=== PATIENT | female | born 1980 | race Caucasian/White ===

== ENCOUNTER → 2020-06-15 | Outpatient (CLI) | payer BC ==
[~2020-06-15] MED LIST: FEXO30TA PO; FEXO60TA PO; HYDR-3583 PO; LISI20TA PO; MULT1CAP27 PO; NAPR-248 PO
--- NOTE | 2020-06-15 16:38 | Diagnostic Imaging Report ---
PROCEDURE: US Non-ob pelvis comp/trans. INDICATION: Anemia with heavy menstrual cycles TECHNIQUE: Multiple real time iglesias scale sonographic images were obtained of the pelvis transabdominally and endovaginally. CORRELATION STUDY: 03/27/2016 FINDINGS: UTERUS: 12.0 x 7.7 x 7.6 cm. There are multiple heterogeneous, solid masslike areas compatible with fibroids, the largest at 3.5 x 3.0 x 3.5 cm, an additional one at 2.7 x 1.9 x 2.0 cm. One located posteriorly measures up to 1.8 cm. Previously, the largest measured up to 1.2 cm in size. This overall appears more prominent from prior. ENDOMETRIUM: 14 mm. Endometrium is at the upper limits of normal for a premenopausal patient. RIGHT OVARY: Not visualized LEFT OVARY: Not visualized No significant free pelvic fluid. IMPRESSION: 1. Enlarged, probable fibroid uterus. The multiple fibroids overall appear more prominent from prior. 2. Nonvisualization of either ovary. This could be owing to their position or perhaps obscuration by the uterus and/or bowel gas. Dictated by: Dictated on workstation # [id number]
--- NOTE | 2020-06-15 19:52 | Diagnostic Imaging Report ---
INDICATION: Routine screening. COMPARISON: No prior mammograms are available for comparison. This is a baseline study. 2-D and 3-D bilateral screening mammography was performed with CAD. Scattered fibroglandular densities are identified bilaterally. No mass or malignant appearing microcalcifications are seen. Axillae are unremarkable. IMPRESSION: BI-RADS Category 1 No mammographic features suspicious for malignancy are identified. ACR BI-RADS Category 1: Negative. Result letter will be mailed to the patient. Note: At least 10% of breast cancer is not imaged by mammography. Dictated by: Dictated on workstation # [id number]
== END ==
LOC: RAD 14:36
PROVIDERS: ATTEND Obstetrics & Gynecology
DX: Z12.31 Encounter for screening mammogram for malignant neoplasm of breast (principal); D64.9 Anemia, unspecified
CPT/HCPCS: 76830; 76856; 77063; 77067

== ENCOUNTER → 2022-08-14 | Outpatient (CLI) | payer BC ==
--- NOTE | 2022-08-14 11:08 | Diagnostic Imaging Report ---
INDICATION: Routine screening. COMPARISON: 06/15/2020. TECHNIQUE: 2D and 3D bilateral screening mammography was performed with CAD. FINDINGS: Scattered fibroglandular densities are identified bilaterally. There is a nodular density in the far posterior right breast projected just above the nipple line on the MLO view. This may be just lateral to the nipple line on the CC view. Additional views of this area are recommended. The left breast is unremarkable. No malignant-appearing microcalcifications are seen. The axillae are unremarkable. IMPRESSION: Right breast density. Additional views are recommended for further evaluation. ACR BI-RADS Category 0: Incomplete. (Needs additional imaging evaluation). Result letter will be mailed to the patient. Note: At least 10% of breast cancer is not imaged by mammography. Dictated by: Dictated on workstation # [id number]
--- NOTE | 2022-08-14 11:09 | Diagnostic Imaging Report ---
PROCEDURE: Pelvic comp/transvaginal sonogram. TECHNIQUE: Complete transabdominal and transvaginal pelvic ultrasound was performed. In addition, limited pelvic Doppler was performed. INDICATION: Menorrhagia. FINDINGS: The uterus is enlarged and anteverted measuring 15.6 x 7.0 x 9.0 cm. The endometrium is thickened at 17 mm. There are multiple fibroids present with the largest measuring 4.1 x 3.6 x 4.6 cm. A second fibroid measures 3.4 x 3.5 x 2.8 cm. Cervical nabothian cysts are noted with the largest being complex measuring 17 mm x 13 mm. The ovaries are not visualized. No adnexal mass or free fluid is detected. IMPRESSION: 1. Enlarged fibroid uterus. 2. Thickened endometrium at 17 mm. 3. Nonvisualized ovaries. Dictated by: Dictated on workstation # [id number]
== END ==
LOC: RAD 09:20
PROVIDERS: ATTEND Nurse Practitioner Women's Health
DX: Z12.31 Encounter for screening mammogram for malignant neoplasm of breast (principal); N64.89 Other specified disorders of breast; D25.9 Leiomyoma of uterus, unspecified; R93.89 Abnormal findings on diagnostic imaging of other specified body structures
CPT/HCPCS: 76830; 76856; 77063; 77067

== ENCOUNTER 2022-08-21 05:59 | Outpatient (CLI) | payer BC ==
[~2022-08-21] VITALS: Ht 172.7 cm; Wt 118.8 kg
[2022-08-21] MEDS ORDERED: FERR324T4 PO (08:53)
[2022-08-21] MEDS ORDERED: ATEN100T PO (08:53)
[2022-08-21] MEDS ORDERED: AMLO-251 PO (08:53)
[2022-08-21] MEDS ORDERED: OLME20TA24 PO (08:53)
== END 2022-08-21 08:57 | disposition home or self-care (01) ==
LOC: PREOP 05:59
PROVIDERS: ATTEND Obstetrics & Gynecology
DX: Z01.818 Encounter for other preprocedural examination (principal)

== ENCOUNTER 2022-08-22 08:26 | Day surgery (SDC) | payer BC ==
[2022-08-22] VITALS (11 sets, daily range): BP systolic 114–150; BP diastolic 72–97
[~2022-08-22] VITALS: Ht 172.2 cm; Wt 118.8 kg
[~2022-08-22 08:26] MED LIST changes: +AMLO-251 PO; +ATEN100T PO; +FERR324T4 PO; +OLME20TA24 PO
[2022-08-22] MEDS ORDERED: BUPIVACAINE 0.25% 30 ML (SENSORCAINE) VIAL ONE (08:39)
[2022-08-22] MEDS ORDERED: BUPIVACAINE 0.25% 30 ML (SENSORCAINE) VIAL INJ ONE (08:42)
[2022-08-22] MEDS ORDERED: LACTATED RINGERS 1,000 ML IV PRN (08:45)
[2022-08-22] MEDS ORDERED: ONDANSETRON 4 MG/2 ML (SDV) Z0FRAN ONE (09:21)
[2022-08-22] MEDS ORDERED: LIDOCAINE PF 2% 5 ML (XYLOCAINE) VIAL ONE (09:21)
[2022-08-22] MEDS ORDERED: proPOfol 200 MG/20 ML (DIPRIVAN) VIAL IV ONE (09:21)
[2022-08-22] MEDS ORDERED: MIDAZOLAM 2 MG/2 ML (VERSED) VIAL ONE (09:21)
[2022-08-22] MEDS ORDERED: fentaNYL INJ 100 MCG/2 ML AMP ONE (09:21)
[2022-08-22 09:25] LABS: EOSINOPHILS # (AUTO) 0.1 10^3/uL (0.0-0.3); EOSINOPHILS % (AUTO) 1 % (0-10); HEMOGLOBIN 10.3 g/dL (11.5-16.0); MONOCYTES % (AUTO) 7 % (0-12)
[2022-08-22 09:27] LABS: BASOPHILS % (AUTO) 1 % (0-10); HEMATOCRIT 34 % (35-52); LYMPHOCYTES # (AUTO) 1.6 10^3/uL (1.0-4.0); LYMPHOCYTES % (AUTO) 20 % (12-44); MEAN CORPUSCULAR HEMOGLOBIN 21 pg (25-34); MEAN CORPUSCULAR HGB CONC 30 g/dL (32-36); MEAN CORPUSCULAR VOLUME 70 fL (80-99); MONOCYTES # (AUTO) 0.6 10^3/uL (0.0-1.0); NEUTROPHILS # (AUTO) 5.5 10^3/uL (1.8-7.8); NEUTROPHILS % (AUTO) 71 % (42-75); PLATELET COUNT 242 10^3/uL (130-400); WHITE BLOOD COUNT 7.8 10^3/uL (4.3-11.0)
--- NOTE | 2022-08-22 09:59 | Discharge Inst-Women's Service ---
Discharge Inst-Women's Serv Depart Medication/Instructions New, Converted or Re-Newed RX: Other (Take home OTC meds, NSAIDs/Tylenol) Problems Reviewed?: Yes Consults/Follow Up Additional Follow Up: Yes Orders/Referrals Dr. Brown/ Rose in 2 weeks Activity Activity: Activity as Tolerated NO SMOKING: NO SMOKING Nothing Inside Vagina: No Douching, No [place], No Tampons Diet Discharge Diet: No Restrictions Symptoms to Report to : Bleeding Excessive, Pain Increased, Fever Over 101 Degrees F, Vaginal Bleeding Increase, Questions/Concerns For Any Problems or Questions: Contact Your Physician, Go to [facility] Skin/Wound Care Infection Signs and Symptoms: Increased Redness, Foul Odor of Wound, Increased Drainage, Skin Itchy or Has a Rash, Increased Swelling, Temperature Above 101 F Operative Area Clean and Dry: Keep Incision Clean/Dry Stitches/[place]/Dermabond: Dermabond, Care of Stitches Bathing Instructions: NIRMAL Rivera DO Aug 22, 2022 09:59
[2022-08-22] MEDS ORDERED: D5 LR IV SOLUTION 1,000 ML IV SCH (10:00)
[2022-08-22] MEDS ORDERED: HYDROcodone/APAP 5 MG/325 MG (LORTAB) TAB PO PRN (10:00)
[2022-08-22] MEDS ORDERED: ONDANSETRON 4 MG/2 ML (SDV) Z0FRAN IVP PRN ×2 (10:00→10:45)
[2022-08-22] MEDS ORDERED: KETOROLAC 30 MG/ML VIAL IVP ONE (10:00)
[2022-08-22] MEDS ORDERED: SEVOFLURANE (ULTANE) 15 ML INHAL SOLN ONE (10:21)
[2022-08-22] MEDS ORDERED: morphine INJ 10 MG/ML 1ML (SYR OR VIAL) IVP ONE (10:45)
--- NOTE | 2022-08-22 14:22 | Anesthesia-General Post-Op ---
General Patient Condition Mental Status/LOC: Same as Preop Cardiovascular: Satisfactory Nausea/Vomiting: Absent Respiratory: Satisfactory Pain: Controlled Complications: Absent Post Op Complications Complications None Follow Up Care/Instructions Patient Instructions None needed. Anesthesia/Patient Condition Patient Condition Patient was seen earlier just prior to her discharge to home from [facility] [place] and she was doing well, no complaints, stable vital signs, no apparent adverse anesthesia problems. No complications reported per nursing. ANAYA YOU DO Aug 22, 2022 14:22
--- NOTE | 2022-08-22 14:48 | OPERATIVE REPORT ---
DATE OF SERVICE: 08/22/2022 PREOPERATIVE DIAGNOSES: 1. A 42-year-old female with endocervical polyp on speculum examination. 2. Abnormal uterine bleeding. 3. Dysmenorrhea. 4. BMI greater than 40. POSTOPERATIVE DIAGNOSES: 1. A 42-year-old female with endocervical polyp on speculum examination. 2. Abnormal uterine bleeding. 3. Dysmenorrhea. 4. BMI greater than 40. PROCEDURE: D and C. SURGEON: Nirmal Vallejo DO ANESTHESIA: LMA general. ESTIMATED BLOOD LOSS: Minimal. URINE OUTPUT: 50 mL drained at the start of the procedure. FLUIDS: 800 mL lactated Ringer's solution. FINDINGS: A cystic structure at the cervix consistent with a possible nabothian cyst. Moderate amount of endometrial curettings. SPECIMENS SENT: Endometrial curettings and cervical cyst. INDICATIONS FOR PROCEDURE: This 42-year-old female is a patient who had consultation from [facility] for abnormal uterine bleeding. Upon ultrasound and inspection, she had all the findings as defined in my findings above. Discussed with the patient the sampling of the tissue due to her age and body habitus. Risk of D and C was discussed with the patient in detail and after all questions were answered, consent was obtained and the patient was taken to the operating room. OPERATIVE REPORT IN DETAIL: Once in the operating room and anesthesia was found to be adequate, she was placed in dorsal lithotomy position, prepped and draped in sterile fashion. A timeout was performed. A weighted speculum was inserted in the patient's vagina. Right angle retractor was used to visualize the cervix, which was grasped at 12 o'clock position using a single tooth tenaculum. I then performed a paracervical block at 3 and 9 o'clock position on the cervix. Care was taken to aspirate for injecting 5 mL of 0.25% Marcaine injected at each site. I then gently sound the uterine cavity and depth was found to be 10 cm. There is a cystic structure at the external cervical os, which was grasped with a ring forceps, which causes rupture of the cyst. Clear fluid was noted coming out the cyst. I then twisted the cyst off using the ring forceps and sent this as a cervical cyst biopsy. I then performed a gentle curettage of the endometrium as the cervix was already dilated from the cyst, had a curette passes without difficulty. Copious amount of tissue was collected on several different passes. After all of this was collected and sent as endometrial curettings after which there was no active bleeding noted from the cervix. The tenaculum was removed. There was no active bleeding from the tenaculum site. All other instruments were removed from the patient's vagina. The patient tolerated the procedure well and sent to recovery area in stable condition. Lap and sponge count was correct at the end of the procedure. Instrument counts correct as well. Job ID: [id number] DocumentID: [id number] Dictated Date: 08/22/2022 10:33:29 Developmental Education Instructor Date: 08/22/2022 14:46:00 Dictated By: NIRMAL VALLEJO DO
== END 2022-08-22 12:20 | disposition home or self-care (01) ==
LOC: SDC 08:26
PROVIDERS: ATTEND Obstetrics & Gynecology
DX: N84.1 Polyp of cervix uteri (principal); N84.0 Polyp of corpus uteri; E66.01 Morbid (severe) obesity due to excess calories; Z68.41 Body mass index [BMI] 40.0-44.9, adult
CPT/HCPCS: 36415; 84703; 85025; 86850; 86900; 86901; 87081; 94664

== ENCOUNTER → 2022-08-24 | Outpatient (CLI) | payer BC ==
--- NOTE | 2022-08-24 10:01 | Diagnostic Imaging Report ---
INDICATION: Abnormal mammogram. EXAMINATION: Ultrasound of the right breast. FINDINGS: The screening mammogram performed on 08/14/2022 noted a nodular density in the far posterior aspect of the right breast. The diagnostic mammogram performed prior to this study failed to show any sign of malignancy in this region. On this exam, there is no discrete solid or cystic mass in this portion of the breast. I suspect the area in question may have been secondary to superimposition of the fibroglandular tissue alone. Even so, I would recommend that a short-term (6 month) follow-up mammogram of the right breast be obtained for continued evaluation. IMPRESSION: There is no evidence of malignancy. Recommendations as above. ACR BI-RADS Category 3: Probably benign findings. Result letter will be mailed to the patient. Note: At least 10% of breast cancer is not imaged by mammography. Dictated by: Dictated on workstation # [id number]
--- NOTE | 2022-08-25 09:39 | Diagnostic Imaging Report ---
3-D unilateral diagnostic mammogram with computer-assisted detection. INDICATION: Abnormal screening mammogram FINDINGS: The recent screening mammogram performed on 08/14/2022 noted a nodular density in the far posterior aspect of the right breast just above the nipple line. The compression views of this area showed that this finding is not as conspicuous. This finding is also difficult to visualize on the roll views and on the true lateral view. This nodular asymmetry may be secondary to fibronodular tissue alone. Even so, I would recommend that ultrasound be performed for further study. IMPRESSION: Ultrasound of the right breast would be recommended for further study. ACR BI-RADS Category 0: Incomplete. (Needs additional imaging evaluation). Result letter will be mailed to the patient. Note: At least 10% of breast cancer is not imaged by mammography. Dictated by: Dictated on workstation # [id number]
== END ==
LOC: RAD 09:04
PROVIDERS: ATTEND Nurse Practitioner Women's Health
DX: R92.2 Inconclusive mammogram (principal)
CPT/HCPCS: 76642; 77065; G0279

== ENCOUNTER → 2022-10-30 | Outpatient (CLI) | payer BC ==
[~2022-10-30] MED LIST changes: +HOLD METFORMIN - RECEIVED CONTRAST 20 ML VIAL IV SCH; +IOHEXOL 350 MG/ML 100 ML (OMNIPAQUE 350) VIAL IV ONE; +NS 100 ML (IVPB) BAG IV ONE
--- NOTE | 2022-10-30 09:02 | Diagnostic Imaging Report ---
PROCEDURE: CT abdomen and pelvis with contrast. TECHNIQUE: Multiple contiguous axial images were obtained through the abdomen and pelvis after administration of intravenous contrast. Auto Exposure Controls were utilized during the CT exam to meet ALARA standards for radiation dose reduction. All CT scans use one or more of the following dose optimizing techniques: automated exposure control, MA and/or KvP adjustment based on patient size and exam type or iterative reconstruction. INDICATION: Right lower quadrant hernia and swelling. Comparison is made with prior CT from 01/07/2013. FINDINGS: Lung bases are clear. The liver is unremarkable. There appear to be small stones layering within the gallbladder. No biliary ductal dilatation is seen. The pancreas and spleen are unremarkable. No adrenal mass is identified. Kidneys are unremarkable. Aorta is nonaneurysmal. No central retroperitoneal or mesenteric lymphadenopathy is seen. There is a spigelian hernia on the right lower quadrant. There appears to be portions of colon and small bowel extending into the hernia sac the right lower quadrant. No definite obstruction is seen. There is no strangulation. There is also small bowel loops extending into a right inguinal hernia. Uterus is enlarged and appears to contain fibroids. There is no free fluid. The bladder is decompressed. Previously noted mass involving the rectus musculature in 2013 is no longer appreciated. IMPRESSION: 1. Right lower quadrant spigelian hernia as well as right inguinal hernia. Hernias containing small large bowel but no strangulation or obstruction is seen. 2. Cholelithiasis. 3. Fibroid uterus. Dictated by: Dictated on workstation # [id number]
== END ==
LOC: RAD 08:20
PROVIDERS: ATTEND Surgery
DX: K46.9 Unspecified abdominal hernia without obstruction or gangrene (principal); K40.90 Unilateral inguinal hernia, without obstruction or gangrene, not specified as recurrent; K80.20 Calculus of gallbladder without cholecystitis without obstruction; D25.9 Leiomyoma of uterus, unspecified
CPT/HCPCS: 74177

== ENCOUNTER 2022-12-12 05:29 | Outpatient (CLI) | payer BC ==
[~2022-12-12] VITALS: Ht 172.7 cm; Wt 119.8 kg
[~2022-12-12 05:29] MED LIST changes: -HOLD METFORMIN - RECEIVED CONTRAST 20 ML VIAL IV SCH; -IOHEXOL 350 MG/ML 100 ML (OMNIPAQUE 350) VIAL IV ONE; -NS 100 ML (IVPB) BAG IV ONE
== END 2022-12-12 12:19 | disposition home or self-care (01) ==
LOC: PREOP 05:29
PROVIDERS: ATTEND Obstetrics & Gynecology
DX: Z01.818 Encounter for other preprocedural examination (principal)

== ENCOUNTER 2022-12-19 07:34 | Day surgery (SDC) | payer BC ==
[~2022-12-19] VITALS: Ht 172.7 cm; Wt 119.8 kg
[2022-12-19] VITALS (12 sets, daily range): BP systolic 104–141; BP diastolic 65–88
[2022-12-19] MEDS ORDERED: metroNIDAZOLE 500MG/100ML IVPB 100 ML IV ONE (08:00)
[2022-12-19] MEDS ORDERED: ceFAZolin INJECTION 2,000 MG in NS (IVPB) 50 ML IV ONE (08:00)
[2022-12-19] MEDS ORDERED: BUPIVACAINE 0.25% 30 ML (SENSORCAINE) VIAL ONE (08:11)
[2022-12-19] MEDS ORDERED: fentaNYL INJ 100 MCG/2 ML AMP ONE (08:19)
[2022-12-19] MEDS ORDERED: ONDANSETRON 4 MG/2 ML (SDV) Z0FRAN ONE (08:19)
[2022-12-19] MEDS ORDERED: proPOfol 200 MG/20 ML (DIPRIVAN) VIAL IV ONE (08:19)
[2022-12-19] MEDS ORDERED: MIDAZOLAM 2 MG/2 ML (VERSED) VIAL ONE (08:19)
[2022-12-19] MEDS ORDERED: ROCURONIUM 50 MG/5 ML (ZEMURON) VIAL IV ONE ×2 (08:19→09:44)
[2022-12-19] MEDS ORDERED: LIDOCAINE PF 2% 5 ML (XYLOCAINE) VIAL ONE (08:19)
[2022-12-19] MEDS: LACTATED RINGERS 1,000 ML IV PRN ×3 (08:29→11:24)
[2022-12-19] MEDS ORDERED: ONDANSETRON 4 MG/2 ML (SDV) Z0FRAN IV PRN (08:30)
[2022-12-19] MEDS ORDERED: IBUPROFEN 600 MG (MOTRIN) TAB PO PRN (08:30)
[2022-12-19] MEDS ORDERED: HYDROcodone/APAP 7.5 MG/325 MG (LORTAB, LORCET PLUS) TABLET PO PRN (08:30)
[2022-12-19] MEDS ORDERED: SIMETHICONE 80 MG (MYLICON) CHEW PO PRN (08:30)
[2022-12-19] MEDS ORDERED: ANTACID SUSP 30 ML UDC (MYLANTA) PO PRN (08:30)
[2022-12-19] MEDS ORDERED: ZOLPIDEM 5 MG (AMBIEN) TAB PO PRN (08:30)
[2022-12-19] MEDS ORDERED: BENZOCAINE LOZENGES 1 EACH LOZENGE MM PRN (08:30)
[2022-12-19] MEDS ORDERED: DOCUSATE SODIUM 100 MG (COLACE) CAP PO PRN (08:30)
--- NOTE | 2022-12-19 08:30 | Progress Note-Pre Operative ---
Pre-Operative Progress Note Date of Available H&P: Dec 19, 2022 Date H&P Reviewed: Dec 19, 2022 Time H&P Reviewed: 08:15 History & Physical: H&P Reviewed, Patient Examed, No changes noted Pre-Operative Diagnosis: Fibroid uterus, Dysmenorrhea, AUB NIRMAL VALLEJO DO Dec 19, 2022 08:30
--- NOTE | 2022-12-19 08:33 | Discharge Inst-Women's Service ---
Discharge Inst-Women's Serv Depart Medication/Instructions New, Converted or Re-Newed RX: Transmitted to Pharmacy Problems Reviewed?: Yes Consults/Follow Up Additional Follow Up: Yes Orders/Referrals Dr. Brown in 7-10 days and in 8 weeks Activity Activity: Activity as Tolerated Driving Instructions: No Driving for 1 Week NO SMOKING: NO SMOKING Nothing Inside Vagina: No Douching, No [place], No Tampons Diet Discharge Diet: No Restrictions Symptoms to Report to : Bleeding Excessive, Pain Increased, Fever Over 101 Degrees F, Vaginal Bleeding Increase, Questions/Concerns For Any Problems or Questions: Contact Your Physician Skin/Wound Care Infection Signs and Symptoms: Increased Redness, Foul Odor of Wound, Increased Drainage, Skin Itchy or Has a Rash, Increased Swelling, Temperature Above 101 F Operative Area Clean and Dry: Keep Incision Clean/Dry Stitches/Go/Dermabond: Dermabond, Care of Stitches Bathing Instructions: NIRMAL Rivera DO Dec 19, 2022 08:33
[2022-12-19] MEDS ORDERED: IBUP-844 PO (08:34)
[2022-12-19] MEDS ORDERED: SIME80TA16 PO (08:34)
[2022-12-19] MEDS ORDERED: HYDR-34 PO (08:34)
[2022-12-19] MEDS ORDERED: DOCU100C37 PO (08:34)
[2022-12-19 08:37] LABS: BASOPHILS % (AUTO) 0 % (0-10); EOSINOPHILS % (AUTO) 0 % (0-10); HEMATOCRIT 34 % (35-52); HEMOGLOBIN 10.4 g/dL (11.5-16.0); LYMPHOCYTES # (AUTO) 1.2 10^3/uL (1.0-4.0); LYMPHOCYTES % (AUTO) 15 % (12-44); MEAN CORPUSCULAR HEMOGLOBIN 20 pg (25-34); MEAN CORPUSCULAR HGB CONC 30 g/dL (32-36); MEAN CORPUSCULAR VOLUME 66 fL (80-99); MONOCYTES # (AUTO) 0.5 10^3/uL (0.0-1.0); MONOCYTES % (AUTO) 7 % (0-12); NEUTROPHILS # (AUTO) 6.2 10^3/uL (1.8-7.8); NEUTROPHILS % (AUTO) 78 % (42-75); PLATELET COUNT 283 10^3/uL (130-400)
[2022-12-19 08:41] LABS: SMEAR SCAN COMMENT YES
[2022-12-19] MEDS ORDERED: HYDROmorphone 2 MG/ML VIAL (DILAUDID) ONE (09:18)
[2022-12-19] MEDS ORDERED: FUROSEMIDE 40 MG/4 ML INJ (LASIX) ONE (11:00)
[2022-12-19] MEDS ORDERED: ESTROGENS CONJ. CREAM 30 GM (PREMARIN) TUBE ONE (11:39)
[2022-12-19] MEDS ORDERED: BUPIVACAINE 0.25% 30 ML (SENSORCAINE) VIAL INJ ONE (11:41)
[2022-12-19] MEDS ORDERED: ESTROGENS CONJ. CREAM 30 GM (PREMARIN) TUBE PV ONE (11:45)
[2022-12-19] MEDS ORDERED: KETOROLAC 30 MG/ML VIAL ONE (11:57)
[2022-12-19] MEDS ORDERED: SEVOFLURANE (ULTANE) 15 ML INHAL SOLN ONE (11:58)
[2022-12-19] MEDS ORDERED: GLYCOPYRROLATE 0.2 MG/ML (ROBINUL) 2 ML VIAL ONE (12:01)
[2022-12-19] MEDS ORDERED: NEOSTIGMINE (BLOXIVERZ ) 1 MG/1ML 10 ML VIAL ONE (12:01)
[2022-12-19] MEDS ORDERED: HYDROmorphone 2 MG/ML VIAL (DILAUDID) IV ONE (12:30)
[2022-12-19] MEDS ORDERED: HYDROmorphone 2 MG/ML VIAL (DILAUDID) IV PRN (12:30)
[2022-12-19] MEDS ORDERED: ONDANSETRON 4 MG/2 ML (SDV) Z0FRAN IVP PRN (12:30)
[2022-12-19] MEDS: LACTATED RINGERS 1,000 ML IV SCH ×2 (15:36→23:21)
--- NOTE | 2022-12-19 17:29 | Progress Note ---
Standard Progress Note Progress Notes/Assess & Plan Date Seen by a Provider: Dec 19, 2022 Time Seen by a Provider: 17:20 Progress/Assessment & Plan Pt is PO day#0 s/p RATLH She is doing well and feeling tired Pain is well controlled. VSS AF Abdomen soft nontender nondistended incision sites bandaged no drainage Vaginal packing in place no active bleeding Clear yellow urine in Phillips Extremities SCDs on A/P s/p RATLH Doing well Continue current care. FARRUKH BARR DO Dec 19, 2022 17:29
--- NOTE | 2022-12-19 17:54 | OPERATIVE REPORT ---
DATE OF SERVICE: 12/19/2022 PREOPERATIVE DIAGNOSES: 1. A 42-year-old female with chronic pelvic pain. 2. Dysmenorrhea. 3. Menorrhagia. 4. Fibroid uterus. 5. Spigelian hernia. 6. Midline incisional hernia. POSTOPERATIVE DIAGNOSES: 1. A 42-year-old female with chronic pelvic pain. 2. Dysmenorrhea. 3. Menorrhagia. 4. Fibroid uterus. 5. Spigelian hernia. 6. Midline incisional hernia. PROCEDURE: Robotic-assisted total laparoscopic hysterectomy with bilateral salpingectomy weight of uterus greater than 500 grams. Repair of vaginal lacerations. SURGEON: Leroy Brown DO JAR CAPPER: Rose Baird DNP, who was necessary for manipulation and retraction throughout the procedure. ANESTHESIA: General endotracheal. ESTIMATED BLOOD LOSS: 250 mL URINE OUTPUT: 300 mL clear at the end of the procedure. FLUIDS: 2500 mL lactated Ringer's solution. FINDINGS: A bulky, enlarged uterus with bilateral normal appearing fallopian tubes and ovaries. A large suprapubic incisional hernia as well as a very large, approximately 4 x 5 cm anterior abdominal wall defect consistent with spigelian hernia on the right below the umbilicus. SPECIMEN SENT: Uterus, bilateral fallopian tubes. INDICATIONS FOR PROCEDURE: This 42-year-old female is a patient who had sought care in my office for ongoing issues with heavy vaginal bleeding. This has been bothering her for years. She has tried multiple conservative measures without any improvement in her discomfort, pain and bleeding episodes. She had also recently had identified and diagnosed hernia, which was being evaluated by general surgeon, Dr. Caballero at that time. We decided to potentially approaches procedure at the same time. However, once the procedure was started, Dr. Caballero decided that doing the hernia repair at separate venue would the better for the patient. I discussed with the patient the risk of my procedure including robotic-assisted hysterectomy, including the potential need for removal of the ovaries. Risks of procedure in detail was discussed including risk of bleeding, infection, damage to surrounding structures including but not limited to bowel, bladder, ureter, kidneys, possible need for operation, postoperative complications that may occur, recovery timeframe, risk from anesthesia and even . After everything was discussed with the patient in detail, she was agreeable to proceed. Consent was obtained. The patient was taken to the operating room. OPERATIVE REPORT IN DETAIL: Once in the operating room, anesthesia was found to be adequate, was placed in dorsal lithotomy position, prepped and draped in normal sterile fashion. A timeout was performed. Phillips catheter was placed using sterile technique. A weighted speculum inserted to the patient's vagina. Right angle retractor was used to visualize cervix, which was grasped at 12 o'clock position using 0 Vicryl suture that was placed to anterior lip of the cervix. Once the suture is in the cervix, I am able to retract the cervix and sound the uterine cavity depth was found to be 8 cm. I selected a FRANK uterine manipulator tip of 8 cm and a 3.5 cm colpotomy ring. The manipulator tip was advanced into the uterus and the colpotomy ring was advanced around the vaginal fornix, at which point I am able to appreciate bimanual manipulation. I performed a change of gloves. I turned my attention to the abdomen where subcostally at the midclavicular line on the left side and introduced the Veress needle until intraperitoneal placement was confirmed using saline drop test. An opening pressure of 6 mmHg was noted. I proceeded to max pressure of 15 mmHg using CO2 gas, at which point I make an 8 mm supraumbilical trocar incision site and the da Caterina trocar is introduced into the intraperitoneal, placement was confirmed using the da Caterina laparoscope. There was no evidence of damage from entry site. There is no evidence of damage in the upper abdomen upon the Veress entry site and the Veress was removed under direct visualization at that point. The large hernia on the right side just below the umbilicus was identified. At this point, Dr. Caballero is available to offer his assessment. He decided that this would be best to address at a different venue. There is also a large suprapubic incisional hernia site as well. I decided at that point I would be able to do this robotically assisted and placed a right sided trocar under direct visualization laparoscope approximately 8-10 cm lateral to my supraumbilical trocar and a left sided trocar in similar fashion. Once both these trocars were placed under direct visualization laparoscope, I bring in the da Caterina robot and docked in appropriate fashion, placing the SynchroSeal device in the right hand, monopolar cheri in the left, I performed the following dissection bilaterally starting at the uteroovarian ligament. I sealed and transected using a SynchroSeal device. I then created a window in the mesosalpinx to take this laterally down the mesosalpinx amputating the fallopian tube from its surrounding blood supply. I then grasped the round ligament, which I sealed and transected using SynchroSeal device and taken down to the level of the lower uterine segment, at which point I the anterior, posterior leaflets of the broad ligament. The anterior leaf dissection was taken around the anterior vaginal fornix. The posterior leaflet was taken around the posterior vaginal fornix. This allows me to skeletonize the uterine vessels laterally, which I sealed and transect using a SynchroSeal device. I am able to identify the ureters during the process of doing this and stated lateral and clear of my dissection planes. I then created a colpotomy at 12 o'clock position using monopolar cheri and took this circumferentially around the vaginal fornix amputating the vagina away from the cervix. I then have to scrub back into the case to remove the uterus due to its size. It has to be bivalved vaginally. Once this was taken down the middle, it was removed in 1 piece and sent to pathology as uterus, cervix and bilateral fallopian tubes. I then am able to take my place back at the operative console where I closed the vaginal cuff using 2-0 V-Loc in a running fashion, after which there was no active bleeding noted from any of my dissection planes. I then copiously irrigated the pelvis using normal saline. Once again, there was no active bleeding noted from any of my dissection planes. I placed Surgiflo hemostatic agent over all my planes of dissection. The patient was taken out of steep Trendelenburg where I removed the lateral trocars under direct visualization, laparoscope. The supraumbilical trocar was left in place to release the remainder of insufflation and to introduce 10 mL of 0.25% Marcaine in the peritoneal cavity for postoperative pain management. I then removed this trocar as well. Skin reapproximated using 4-0 Monocryl and interrupted subcuticular stitches. Dermabond was applied to incision, sterile dressing was adhesed with Band-Aids. I then evaluated the vagina, which has multiple lacerations. Bilateral periurethral lacerations were repaired using 3-0 Vicryl suture in a running locked fashion. There is a vaginal laceration at 6 o'clock that was repaired using 3-0 Vicryl suture in a running locked fashion. There is a left sulcal tear all the way to the vaginal cuff that is repaired using 2-0 Vicryl suture in a running locked fashion, after which all of the vagina was inspected and found to be hemostatic. I go ahead and pack the vagina with Premarin-soaked vaginal packing to prevent postoperative bleeding and hematoma formation. Once this was completely packed, I leave Phillips catheter in place. Lap and sponge counts were correct at the end of the procedure. Instrument counts correct as well. Two grams of Ancef and 500 mg of Flagyl were given preoperatively for infection prophylaxis. The patient tolerated the procedure well and sent to recovery area in stable condition. Job ID: [id number] DocumentID: [id number] Dictated Date: 12/19/2022 12:32:14 Assembly Detailer Date: 12/19/2022 17:52:00 Dictated By: DO LEE HOLLEY
[2022-12-19] MEDS: KETOROLAC 30 MG/ML VIAL IVP PRN ×2 (18:02→23:21)
[2022-12-20 04:15] VITALS: BP 126/80
[2022-12-20] MEDS: KETOROLAC 30 MG/ML VIAL IVP PRN (06:47)
[2022-12-20] MEDS: LACTATED RINGERS 1,000 ML IV SCH (07:19)
--- NOTE | 2022-12-20 07:37 | Anesthesia-General Post-Op ---
General Patient Condition Mental Status/LOC: Same as Preop Cardiovascular: Satisfactory Nausea/Vomiting: Absent Respiratory: Satisfactory Pain: Controlled Complications: Absent Post Op Complications Complications None Follow Up Care/Instructions Patient Instructions None needed. Anesthesia/Patient Condition Patient Condition Patient is doing well, no complaints, stable vital signs, no apparent adverse anesthesia problems. No complications reported per nursing. KRYSTA FUNG CRNA Dec 20, 2022 07:37
[2022-12-20 08:30] VITALS: BP 141/76
[2022-12-20 11:35] VITALS: BP 141/76
== END 2022-12-20 11:35 | disposition home or self-care (01) ==
LOC: SDC 07:34 → WS 13:20 → SDC 12-20 11:35
PROVIDERS: ATTEND Obstetrics & Gynecology
DX: D25.1 Intramural leiomyoma of uterus (principal); S31.41XA Laceration without foreign body of vagina and vulva, initial encounter; N87.9 Dysplasia of cervix uteri, unspecified; N94.6 Dysmenorrhea, unspecified; N92.0 Excessive and frequent menstruation with regular cycle; N72 Inflammatory disease of cervix uteri; N88.8 Other specified noninflammatory disorders of cervix uteri; K43.2 Incisional hernia without obstruction or gangrene; E66.01 Morbid (severe) obesity due to excess calories; N94.5 Secondary dysmenorrhea; K43.6 Other and unspecified ventral hernia with obstruction, without gangrene; Z68.41 Body mass index [BMI] 40.0-44.9, adult
CPT/HCPCS: 36415; 84703; 85025; 86850; 86900; 86901; 87081; 94664

== ENCOUNTER → 2023-03-05 | Outpatient (CLI) | payer BC ==
[~2023-03-05] MED LIST changes: +DOCU100C37 PO; +HYDR-34 PO; +IBUP-844 PO; +SIME80TA16 PO
--- NOTE | 2023-03-05 15:10 | Diagnostic Imaging Report ---
INDICATION: 6 month followup right breast nodule. COMPARISON: Correlation is made with the prior studies from 08/14/2022 and 08/24/2022. TECHNIQUE: Unilateral right 2D and 3D diagnostic mammography was performed with CAD. FINDINGS: Scattered fibroglandular densities in the right breast are again noted. There are benign appearing nodules in the far posterior right breast which appear similar to the prior exam. No new mass is detected. No malignant-appearing microcalcifications are identified. IMPRESSION: Stable nodules in the far posterior right breast. Even so, an additional 6 month followup is recommended to show continued stability. ACR BI-RADS Category 3: Probably benign findings. Result letter will be mailed to the patient. Note: At least 10% of breast cancer is not imaged by mammography. Dictated by: Dictated on workstation # [id number]
== END ==
LOC: RAD 12:37
PROVIDERS: ATTEND Nurse Practitioner Women's Health
DX: Z09 Encounter for follow-up examination after completed treatment for conditions other than malignant neoplasm (principal); N63.10 Unspecified lump in the right breast, unspecified quadrant
CPT/HCPCS: 77065; G0279